=== PATIENT | female | born 1990 | race Caucasian/White ===

== ENCOUNTER 2018-08-21 23:25 | Inpatient (IN) | payer MEDICAID ==
[~2018-08-21] VITALS: Ht 162.6 cm; Wt 57.8 kg
[~2018-08-21 23:25] MED LIST: PRENAT PO
[2018-08-21] MEDS ORDERED: ONDANSETRON 4 MG INJ IV STA (23:53)
[2018-08-21] MEDS ORDERED: SOD CHLORIDE 0.9% 1,000 ML IV STA (23:53)
[2018-08-22] VITALS (9 sets, daily range): BP systolic 74–96; BP diastolic 47–59; PULSE 57–96; RESP 17–18; Ht 162.6 cm; Wt 57.8 kg
[2018-08-22] MEDS ORDERED: DEXTROSE 5%-0.45% NACL 500 ML BAG IV ONE
--- NOTE | 2018-08-22 00:49 | ERD ---
ER Documentation Chief Complaint Chief Complaint NAUSEA WITH VOMITING. 8WKS , VERY WEAK, FAINTED HPI Is a very pleasant 28-year-old female who is a at approximately 8 weeks gestation who presents with hyperemesis and lightheadedness and weakness. The patient describes hyperemesis gravidarum during her first . Over the last several days she has had multiple episodes of nausea and vomiting not alleviated with home Zofran. The patient states that earlier she became lightheaded and had an episode of near syncope or syncope. She denies any abdominal pain or vaginal bleeding. She has had ultrasound during this that confirms IUP. Decreased urine output today. ROS All systems reviewed and are negative except as per history of present illness. Medications Home Meds Reported Medications Multivit/Min/Fol Ac/Iron/Pren* ( S*) 1 Tab Tab, 1 TAB PO DAILY, #1 TAB 02/16/14 Allergies Allergies: Coded Allergies: No Known Allergy (Unverified , 09/10/12) PMhx/Soc Medical and Surgical Hx: pt denies Medical Hx, pt denies Surgical Hx History of Surgery: No Anesthesia Reaction: No Hx Neurological Disorder: No Hx Respiratory Disorders: No Hx Cardiac Disorders: No Hx Psychiatric Problems: No Hx Miscellaneous Medical Probl: Yes (8 weeks gestation ) Hx Alcohol Use: No Hx Substance Use: No Hx Tobacco Use: No Smoking Status: Never smoker FmHx Family History: No diabetes Physical Exam Vitals Vital Signs Date Temp Pulse Resp B/P (MAP) Pulse Ox O2 O2 Flow FiO2 Time Delivery Rate 08/22/18 98.4 71 11 88/54 (65) 100 Room Air 02:00 08/21/18 98.3 60 14 94/64 (74) 100 Room Air 23:46 08/21/18 99.0 73 17 95/50 (65) 98 23:29 Physical Exam General: Well developed, well nourished, no acute distress Head: Normocephalic, atraumatic. Eyes: Pupils equally reactive, EOM intact ENT: Dry mucous membranes Neck: Supple, no lymphadenopathy Respiratory: Lungs clear bilaterally, no distress Cardiovascular: RRR, no murmurs, rubs, or gallops Abdominal: Soft, non-tender, non-distended, no peritoneal signs : Deferred MSK: No edema, no unilateral swelling, 5/5 strength Neurologic: Alert and oriented, moving all extremities, normal speech, no focal weakness, no cerebellar signs Skin: No rash Psych: Normal mood Result Diagram: 08/22/18 0011 08/22/18 0011 Results 24 hrs Laboratory Tests Test 08/22/18 00:11 08/22/18 01:21 08/22/18 01:22 White Blood Count 9.3 10^3/ul Red Blood Count 4.70 10^6/ul Hemoglobin 9.6 g/dl Hematocrit 32.3 % Mean Corpuscular Volume 68.7 fl Mean Corpuscular Hemoglobin 20.4 pg Mean Corpuscular 29.7 g/dl Hemoglobin Concent Red Cell Distribution Width 20.0 % Platelet Count 339 10^3/UL Mean Platelet Volume 9.9 fl Immature Granulocytes % 0.400 % Neutrophils % 71.0 % Lymphocytes % 19.3 % Monocytes % 7.7 % Eosinophils % 1.3 % Basophils % 0.3 % Nucleated Red Blood Cells % 0.0 /100WBC Immature Granulocytes # 0.040 10^3/ul Neutrophils # 6.6 10^3/ul Lymphocytes # 1.8 10^3/ul Monocytes # 0.7 10^3/ul Eosinophils # 0.1 10^3/ul Basophils # 0.0 10^3/ul Nucleated Red Blood Cells # 0.0 10^3/ul Sodium Level 136 mmol/L Potassium Level 3.6 mmol/L Chloride Level 102 mmol/L Carbon Dioxide Level 22 mmol/L Anion Gap 12 Blood Urea Nitrogen 9 mg/dl Creatinine 0.63 mg/dl Est Glomerular Filtrat > 60 mL/min Rate mL/min Glucose Level 96 mg/dl Calcium Level 9.4 mg/dl POC Beta HCG, Qualitative POSITIVE Urine Color YELLOW Urine Clarity SLIGHTLY CLOUDY Urine pH 5.0 Urine Specific [place] 1.013 Urine Ketones TRACE mg/dL Urine Nitrite NEGATIVE mg/dL Urine Bilirubin NEGATIVE mg/dL Urine Urobilinogen NEGATIVE mg/dL Urine Leukocyte Esterase 2+ Emani/ul Urine Microscopic RBC 4 /HPF Urine Microscopic WBC 5 /HPF Urine Squamous Epithelial Cells FEW /HPF Urine Mucus MANY /HPF Urine Hemoglobin NEGATIVE mg/dL Urine Glucose 3+ mg/dL Urine Total Protein NEGATIVE mg/dl Current Medications Medications Dose Sig/Gracie Start Time Status Last (Trade) Ordered Route PRN Stop Time Admin Dose Reason Admin Sodium 1,000 ml @ Q1H STAT 08/21/18 DC 08/22/18 Chloride 1,000 mls/hr IV 23:53 00:09 08/22/18 00:52 Ondansetron 4 mg ONCE STAT 08/21/18 DC 08/22/18 HCl (Zofran IV 23:53 00:21 Inj) 08/21/18 23:59 500 ml ONCE ONCE 08/22/18 DC 08/22/18 Dextrose/Sodi IV 00:00 00:21 um Chloride 08/22/18 00:01 (D5-1/2ns) Sodium 1,000 ml @ Q1H STAT 08/22/18 08/22/18 Chloride 1,000 mls/hr IV 02:08 02:19 08/22/18 03:07 25 mg ONCE ONCE 08/22/18 DC 08/22/18 Diphenhydrami IV 02:30 02:19 ne HCl 08/22/18 02:31 (Benadryl) Ondansetron 4 mg BRIDGE ORDER 08/22/18 HCl (Zofran PRN IV 02:30 Inj) NAUSEA AND/OR 08/23/18 02:29 VOMITING 650 mg ER BRIDGE 08/22/18 Acetaminophen PRN PO MILD 02:30 (Tylenol PAIN(1-3)OR 08/23/18 02:29 Tab) ELEVATED TEMP Procedures/MDM EKG, MONITORS, & DIAGNOSTIC IMAGING: EKG: I reviewed and interpreted a 12-lead EKG. Rhythm: Normal sinus rhythm ST Changes: No contiguous ST segment elevations T waves: No contiguous T wave inversions Impression: [No evidence of acute cardiac ischemia] Pelvic US: Pending LAB INTERPRETATION: * Mild anemia to be expected at . Patient is taking iron supplements. * Ketonuria MEDICAL DECISION MAKING: The patient has hyperemesis gravidarum with associated dehydration and syncopal episode. The patient has no abdominal pain, no vaginal bleeding and confirmed IUP at this . No risk factors for heterotopic . I do not believe this is consistent with ectopic . Ultrasound not indicated currently. Laboratory testing, fluid resuscitation would be most appropriate. No signs or symptoms concerning for pulmonary embolism, blood loss or cardiac etiology as the patient's source of syncope. ER COURSE: * The patient was given IV fluids, dextrose solution, Zofran. She still has persistent symptoms. * A second liter of normal saline was provided, Benadryl provided. * The patient's blood pressure remains in the 80s and 90s. She is a tall slender female and states that her blood pressure is usually in the 90s and 100s. This is not far off from her baseline. However, given the persistence of her symptoms with the evidence of syncope and borderline blood pressure I do believe inpatient hospitalization for treatment of hypovolemia related to hyperemesis gravidarum would be most appropriate. Again, the patient co nfirmed IUP and is a reliable historian. This is not consistent with ectopic . * I discussed the case with Dr. Brown, on-call for [employer]. She agrees with the plan of care and would like the patient needed to medicine and she will follow. She recommends formal ultrasound, hCG, TSH, LFTs and amylase. These have been ordered. CONSULTATION: [employer]PER[employer], Dr. Varela as above DISPOSITION PLAN: Admit for further hydration and management. Accepting care team and consultations: I discussed the current laboratory data, diagnostic imaging and emergency care provided. Admitting team: Dr. Wong Admitting team indication: Insurance directed Departure Diagnosis: Primary Impression: Dehydration Additional Impressions: Hyperemesis gravidarum Syncope Syncope type: unspecified Qualified Codes: R55 - Syncope and collapse Condition: Stable JEFF MIGUEL MD Aug 22, 2018 00:49
[2018-08-22] MEDS ORDERED: SOD CHLORIDE 0.9% 1,000 ML IV STA (02:08)
[2018-08-22] MEDS ORDERED: DIPHENHYDRAMINE 50 MG INJ IV ONE (02:30)
[2018-08-22] MEDS ORDERED: ACETAMINOPHEN 325 MG TAB PO PRN ×2 (02:30→03:00)
--- NOTE | 2018-08-22 02:54 | HP ---
Date/Time of Note Date/Time of Note DATE: 08/22/18 TIME: 02:53 Assessment/Plan VTE Prophylaxis SCD applied (from Nsg): Yes Pharmacological prophylaxis: heparin Pharm contraindication: low risk/ambulating Lines/Catheters IV Catheter Type (from Nrsg): Peripheral IV Assessment/Plan Hospital Course This is a 28-year-old female being admitted to the telemetry floor for: #1 volume depletion and dehydration: Secondary to hyperemesis gravidarum. Patient did present hypotensive but has subsequently responded to fluid boluses. At the current time we will continue to hydrate the patient with normal saline. Zofran and Reglan for nausea. Vitamin B6 X 4 times daily. #2 urinary tract infection: Ceftriaxone 1 g IV every 24 hours, await urine culture results #3 IUP: Ultrasound shows IUP at approximately 9 weeks., Further management as per OB. First trimester labs have been ordered by OB, await results #4 DVT GI prophylaxis: Heparin, no GI prophylaxis indicated Further treatment strategy will be implemented as per the clinical course. Result Diagram: 08/22/18 0011 08/22/18 0011 Results 24hrs Laboratory Tests Test 08/22/18 00:11 08/22/18 01:21 08/22/18 01:22 White Blood Count 9.3 Red Blood Count 4.70 Hemoglobin 9.6 L Hematocrit 32.3 L Mean Corpuscular Volume 68.7 L Mean Corpuscular Hemoglobin 20.4 L Mean Corpuscular 29.7 L Hemoglobin Concent Red Cell Distribution Width 20.0 H Platelet Count 339 Mean Platelet Volume 9.9 Immature Granulocytes % 0.400 Neutrophils % 71.0 Lymphocytes % 19.3 Monocytes % 7.7 Eosinophils % 1.3 Basophils % 0.3 Nucleated Red Blood Cells % 0.0 Immature Granulocytes # 0.040 H Neutrophils # 6.6 Lymphocytes # 1.8 Monocytes # 0.7 Eosinophils # 0.1 Basophils # 0.0 Nucleated Red Blood Cells # 0.0 Sodium Level 136 Potassium Level 3.6 Chloride Level 102 Carbon Dioxide Level 22 Anion Gap 12 Blood Urea Nitrogen 9 Creatinine 0.63 Est Glomerular Filtrat > 60 Rate mL/min Glucose Level 96 Calcium Level 9.4 POC Beta HCG, Qualitative POSITIVE H Urine Color YELLOW Urine Clarity SLIGHTLY CLOUDY A Urine pH 5.0 Urine Specific [place] 1.013 Urine Ketones TRACE A Urine Nitrite NEGATIVE Urine Bilirubin NEGATIVE Urine Urobilinogen NEGATIVE Urine Leukocyte Esterase 2+ H Urine Microscopic RBC 4 Urine Microscopic WBC 5 Urine Squamous FEW Epithelial Cells Urine Mucus MANY A Urine Hemoglobin NEGATIVE Urine Glucose 3+ H Urine Total Protein NEGATIVE HPI/ROS Admit Date/Time Admit Date/Time Hx of Present Illness Chief complaint: Persistent nausea and vomiting, 8 weeks , This is a 28-year-old female who is a at approximately 8 weeks gestation who presents with hyperemesis and lightheadedness and weakness. She reports that ever since she found out she was she has been continuously nauseated and then over the last several days she has had multiple episodes of nausea and vomiting not alleviated with home Zofran. The patient states that earlier she became lightheaded and had an episode of near syncope where her family caught her. She denies any abdominal pain or vaginal bleeding. She has had ultrasound during this that confirms IUP. Decreased urine output today. She reports that during her first she dealt with similar symptoms which were not relieved by any antinausea medications. Allergies: NKDA Medications: Prenatals Iron Folic acid ROS Const: As per HPI Eyes : No pain discharge or redness or change in visual acuity ENT: No pain, sore throat, congestion, congestion, dysphagia or discharge Respiratory: No shortness of breath, cough, sputum, wheezing, or pleuritic pain Cardiovascular: No chest pain, palpitation, PND, or edema GI : As per HPI Genitourinary: No dysuria, hematuria, flank pain , discharge or CVA tenderness Musculoskeletal: No joint pain, back pain, neck pain, restricted range of motion in neck or joints Skin: No rash, bruising or hives Neuro: As per HPI Endocrine: No polyuria, polydipsia, temperature intolerance Psych: No hallucination, depression, anxiety or suicidal ideation PMH/Family/Social Past Medical History History of gestational diabetes during previous Medications Current Medications Sodium Chloride 1,000 ml @ 1,000 mls/hr Q1H STAT IV Last administered on 08/22/18at 02:19; Admin Dose 1,000 MLS/HR; Start 08/22/18 at 02:08; Stop 08/22/18 at 03:07 Ondansetron HCl (Zofran Inj) 4 mg BRIDGE ORDER PRN IV NAUSEA AND/OR VOMITING; Start 08/22/18 at 02:30; Stop 08/23/18 at 02:29 Acetaminophen (Tylenol Tab) 650 mg ER BRIDGE PRN PO MILD PAIN(1-3)OR ELEVATED TEMP; Start 08/22/18 at 02:30; Stop 08/23/18 at 02:29 Ceftriaxone Sodium 50 ml @ 100 mls/hr Q24H IVPB ; Start 08/22/18 at 03:00; Status UNV Sodium Chloride 1,000 ml @ 100 mls/hr Q10H IV ; Start 08/22/18 at 02:46; Status UNV IV Flush (NS 3 ml) 3 ml PER PROTOCOL IV ; Start 08/22/18 at 03:00; Status UNV Ondansetron HCl (Zofran Inj) 4 mg Q6H PRN IV NAUSEA AND/OR VOMITING; Start 08/22/18 at 03:00; Status UNV Acetaminophen (Tylenol Tab) 650 mg Q6H PRN PO PAIN LEVEL 1-3 OR FEVER; Start 08/22/18 at 03:00; Status UNV Docusate Sodium (Colace) 100 mg Q12H PRN PO CONSTIPATION; Start 08/22/18 at 03:00; Status UNV Bisacodyl (Dulcolax) 5 mg DAILY PRN PO CONSTIPATION; Start 08/22/18 at 03:00; Status UNV Pantoprazole (Protonix Iv) 40 mg DAILY@06 IV ; Start 08/22/18 at 06:00; Status UNV Heparin Sodium (Porcine) (Heparin (5000 Units/1ml)) 5,000 unit Q8 SC ; Start 08/22/18 at 06:00; Status UNV Coded Allergies: No Known Allergy (Unverified , 09/10/12) Past Surgical History Past Surgical Hx: no surgical history Family History Significant Family History: no pertinent family hx Social History Alcohol Use: none Smoking Status: Never smoker Drug Use: none Exam/Review of Systems Vital Signs Vitals Vital Signs Date Temp Pulse Resp B/P (MAP) Pulse Ox O2 O2 Flow FiO2 Time Delivery Rate 08/22/18 98.6 61 16 93/80 (84) 100 Room Air 02:47 Intake and Output 08/21/18 08/21/18 08/22/18 1515:00 23:00 07:00 IntakeIntake Total 1000 ml BalanceBalance 1000 ml Exam Exam General: Patient is currently lying in bed, she appears weak HEENT: Atraumatic, normocephalic. The pupils are equal, round and reactive. Extraocular motor are intact, mucous membranes dry Neck: Supple with full range of motion. No rigidity or meningismus Chest: Nontender Lungs: Clear to auscultation bilaterally no crackles rales or wheezing Heart: Normal S1-S2, Regular rhythm and rate. Abdomen: Soft , nontender, nondistended , bowel sounds are present. No guarding no rebound tenderness , No masses or organomegaly. No costovertebral temporal angle mass Extremities: Normal to inspection, no edema no cyanosis Neurologic: Normal mental status, speech normal, cranial nerves II through XII are intact, motor and sensory are intact, Additional Comments PROCEDURE: US OB. CLINICAL INDICATION: Vaginal Bleed () vomiting. LMP 06/14/2018. TECHNIQUE: Transabdominal and transvaginal views of the pelvis are available for review. COMPARISON: No prior studies are available for comparison. FINDINGS: There is an intrauterine gestational sac. The mean sac diameter is 3.91 cm. pole and yolk sac are seen. There is evidence of a subchorionic hematoma measuring 1.8 x 0.8 cm. Leonidas-rump length: 2.15 cm heart rate: 176 beats per minute Nuchal translucency: Ultrasound estimated gestational age: 9 weeks, 1 day. The gestational age by LMP is 9 weeks, 6 days. The BHARATI is 03/26/2019. BHARATI by LMP is 03/21/2018. The right ovary measures 3.2 x 1.8 x 2.4 cm. The left ovary measures 3.2 x 1.3 x 1.7 cm. There is a 3 x 4 mm echogenic lesion without shadowing in the left ovar y, likely benign. Doppler flow is demonstrated in both ovaries. No adnexal mass is identified. There is no free fluid. IMPRESSION: 1. Single live intrauterine with an estimated gestational age of 9 weeks, 1 day. BHARATI is 03/26/2019. 1.8 x 0.8 cm subchorionic hematoma. [facility] Darnell Fernandez Physician Date Time Electronically viewed and signed by Darnell Fernandez, Physician on 08/22/2018 04:36 CS/ CC: JEFF MIGUEL MD [id number] GANESH SALGUERO Aug 22, 2018 02:54
[2018-08-22] MEDS ORDERED: CEFTRIAXONE 1 GM/50 ML (PMX) 50 ML IVPB SCH (03:00)
[2018-08-22] MEDS ORDERED: BISACODYL (EC) 5 MG TAB PO PRN (03:00)
[2018-08-22] MEDS ORDERED: DOCUSATE SODIUM 100 MG CAP PO PRN (03:00)
[2018-08-22] MEDS ORDERED: NACL 0.9% 3 ML SYG IV SCH (03:00)
[2018-08-22] MEDS ORDERED: ONDANSETRON 4 MG INJ IV PRN (03:00)
[2018-08-22] MEDS: METOCLOPRAMIDE 10 MG INJ IV SCH ×3 (05:44→17:19)
[2018-08-22] MEDS: PYRIDOXINE 50 MG TAB PO SCH ×4 (05:44→20:54)
[2018-08-22] MEDS: PANTOPRAZOLE 40 MG INJ IV SCH (05:44)
[2018-08-22] MEDS: CEFTRIAXONE 1 GM/50 ML (PMX) 50 ML IVPB SCH (05:44)
[2018-08-22] MEDS: SOD CHLORIDE 0.9% 1,000 ML IV SCH ×3 (05:56→15:35)
[2018-08-22] MEDS: HEPARIN 5,000 UNIT/1 ML VIAL SC SCH ×3 (06:01→21:09)
[2018-08-22] MEDS: ONDANSETRON 4 MG INJ IV PRN ×2 (09:58→15:35)
--- NOTE | 2018-08-22 17:07 | PN ---
Date/Time of Note Date/Time of Note DATE: 08/22/18 TIME: 17:04 Assessment/Plan VTE Prophylaxis Risk score (from Ns)>0 risk: 0 SCD applied (from Ns): Yes Pharmacological prophylaxis: NA/contraindicated Pharm contraindication: low risk/ambulating Lines/Catheters IV [facility]from [facility] [place] Assessment/Plan Assessment/Plan 28 yo woman admitted for hyperemesis gravidum. She's 9 weeks . #Hyperemesis gravidum # volume depletion and dehydration - Secondary to hyperemesis gravidarum. - Remains borderline hypotensive - Continue IV fluids until reliably taking PO. - Symptomatic zofran and Reglan - Vitamin B6 X 4 times daily. #Iron deficiency anemia - Ferrlicit IV # urinary tract infection: Ceftriaxone 1 g IV every 24 hours, await urine cultu re results # IUP: Ultrasound shows IUP at approximately 9 weeks., Further management as per OB. First trimester labs have been ordered by OB, await results # DVT GI prophylaxis: Heparin, no GI prophylaxis indicated Result Diagram: 08/22/18 0011 08/22/18 0011 Results 24hrs Laboratory Tests Test 08/22/18 00:11 08/22/18 01:21 08/22/18 01:22 White Blood Count 9.3 Red Blood Count 4.70 Hemoglobin 9.6 L Hematocrit 32.3 L Mean Corpuscular Volume 68.7 L Mean Corpuscular Hemoglobin 20.4 L Mean Corpuscular 29.7 L Hemoglobin Concent Red Cell Distribution Width 20.0 H Platelet Count 339 Mean Platelet Volume 9.9 Immature Granulocytes % 0.400 Neutrophils % 71.0 Lymphocytes % 19.3 Monocytes % 7.7 Eosinophils % 1.3 Basophils % 0.3 Nucleated Red Blood Cells % 0.0 Immature Granulocytes # 0.040 H Neutrophils # 6.6 Lymphocytes # 1.8 Monocytes # 0.7 Eosinophils # 0.1 Basophils # 0.0 Nucleated Red Blood Cells # 0.0 Sodium Level 136 Potassium Level 3.6 Chloride Level 102 Carbon Dioxide Level 22 Anion Gap 12 Blood Urea Nitrogen 9 Creatinine 0.63 Est Glomerular Filtrat > 60 Rate mL/min Glucose Level 96 Calcium Level 9.4 Iron Level 26 L Total Iron Binding Capacity 419 Percent Iron Saturation 6 L Ferritin 5.4 L Total Bilirubin 0.2 Direct Bilirubin 0.00 Indirect Bilirubin 0.2 Aspartate Amino 19 Transf (AST/SGOT) Alanine 27 Aminotransferase (ALT/SGPT) Alkaline Phosphatase 45 Total Protein 6.9 Albumin 3.6 Amylase Level 124 H Thyroid Stimulating 0.279 L Hormone (TSH) Free Thyroxine 1.77 Beta HCG, Quantitative 798242.0 POC Beta HCG, Qualitative POSITIVE H Urine Color YELLOW Urine Clarity SLIGHTLY CLOUDY A Urine pH 5.0 Urine Specific [place] 1.013 Urine Ketones TRACE A Urine Nitrite NEGATIVE Urine Bilirubin NEGATIVE Urine Urobilinogen NEGATIVE Urine Leukocyte Esterase 2+ H Urine Microscopic RBC 4 Urine Microscopic WBC 5 Urine Squamous FEW Epithelial Cells Urine Mucus MANY A Urine Hemoglobin NEGATIVE Urine Glucose 3+ H Urine Total Protein NEGATIVE Subjective 24 Hr Interval Summary Free Text/Dictation No acute overnight events. Patient is still very nauseated, but no vomiting since last night. Exam/Review of Systems Vital Signs Vitals Vital Signs Date Temp Pulse Resp B/P (MAP) Pulse Ox O2 O2 Flow FiO2 Time Delivery Rate 08/22/18 57 16:17 08/22/18 98.7 17 82/50 (61) 98 15:38 08/22/18 Room Air 05:21 Intake and Output 08/21/18 08/21/18 08/22/18 1515:00 23:00 07:00 IntakeIntake Total 1240 ml BalanceBalance 1240 ml Exam General: Patient is currently lying in bed, she appears weak HEENT: Atraumatic, normocephalic. The pupils are equal, round and reactive. Extraocular motor are intact, mucous membranes dry Neck: Supple with full range of motion. No rigidity or meningismus Chest: Nontender Lungs: Clear to auscultation bilaterally no crackles rales or wheezing Heart: Normal S1-S2, Regular rhythm and rate. Abdomen: Soft , nontender, nondistended , bowel sounds are present. No guarding , No masses or organomegaly. No costovertebral temporal angle mass Extremities: Normal to inspection, no edema no cyanosis Medications Medications Current Medications Ondansetron HCl (Zofran Inj) 4 mg BRIDGE ORDER PRN IV NAUSEA AND/OR VOMITING Last administered on 08/22/18at 15:35; Admin Dose 4 MG; Start 08/22/18 at 02:30; Stop 08/23/18 at 02:29 Acetaminophen (Tylenol Tab) 650 mg ER BRIDGE PRN PO MILD PAIN(1-3)OR ELEVATED TEMP; Start 08/22/18 at 02:30; Stop 08/23/18 at 02:29 Sodium Chloride 1,000 ml @ 100 mls/hr Q10H IV Last administered on 08/22/18at 15:35; Admin Dose 100 MLS/HR; Start 08/22/18 at 02:46 IV Flush (NS 3 ml) 3 ml PER PROTOCOL IV ; Start 08/22/18 at 03:00 Ondansetron HCl (Zofran Inj) 4 mg Q6H PRN IV NAUSEA AND/OR VOMITING; Start 08/22/18 at 03:00 Acetaminophen (Tylenol Tab) 650 mg Q6H PRN PO PAIN LEVEL 1-3 OR FEVER; Start 08/22/18 at 03:00 Docusate Sodium (Colace) 100 mg Q12H PRN PO CONSTIPATION; Start 08/22/18 at 03:00 Bisacodyl (Dulcolax) 5 mg DAILY PRN PO CONSTIPATION; Start 08/22/18 at 03:00 Pantoprazole (Protonix Iv) 40 mg DAILY@06 IV Last administered on 08/22/18at 05:44; Admin Dose 40 MG; Start 08/22/18 at 06:00 Heparin Sodium (Porcine) (Heparin (5000 Units/1ml)) 5,000 unit Q8 SC Last administered on 08/22/18at 06:01; Admin Dose 5,000 UNIT; Start 08/22/18 at 06:00 Ceftriaxone Sodium 50 ml @ 100 mls/hr Q24H IVPB Last administered on 08/22/18 05:44; Admin Dose 100 MLS/HR; Start 08/22/18 at 04:00 Pyridoxine HCl (Vitamin B6) 25 mg QID PO Last administered on 08/22/18at 12:30; Admin Dose 25 MG; Start 08/22/18 at 05:00 Metoclopramide HCl (Reglan) 10 mg Q6 IV Last administered on 08/22/18 12:30; Admin Dose 10 MG; Start 08/22/18 at 06:00 MARLO CASTANEDA MD Aug 22, 2018 17:06
[2018-08-22] MEDS ORDERED: DIPHENHYDRAMINE 25 MG CAP PO ONE (20:30)
[2018-08-23] VITALS (9 sets, daily range): BP systolic 91–107; BP diastolic 51–63; PULSE 61–82; RESP 17–18
[2018-08-23] MEDS: METOCLOPRAMIDE 10 MG INJ IV SCH ×5 (00:08→17:32)
[2018-08-23] MEDS: CEFTRIAXONE 1 GM/50 ML (PMX) 50 ML IVPB SCH (04:56)
[2018-08-23] MEDS: PANTOPRAZOLE 40 MG INJ IV SCH (06:40)
[2018-08-23] MEDS: HEPARIN 5,000 UNIT/1 ML VIAL SC SCH ×3 (06:51→21:52)
[2018-08-23] MEDS: SOD CHLORIDE 0.9% 1,000 ML IV SCH ×3 (08:46→17:48)
[2018-08-23] MEDS: PYRIDOXINE 50 MG TAB PO SCH ×4 (09:29→21:34)
--- NOTE | 2018-08-23 10:40 | PN ---
Date/Time of Note Date/Time of Note DATE: 08/23/18 TIME: 10:36 Assessment/Plan VTE Prophylaxis Risk score (from Ns)>0 risk: 1 SCD applied (from Ns): No SCD contraindicated: other Pharmacological prophylaxis: other Lines/Catheters IV Catheter Type (from [facility] Saline Lock Assessment/Plan Hospital Course S: Patient able to tolerate some p.o. diet, slightly less nausea vomiting sympto ms. O: VS - see below PE: General: lying in bed, family at the bedside, slightly less lethargic HEENT: pupils are equal, round and reactive. Extraocular motor are intact Neck: Supple Chest: Nontender Lungs: Clear to auscultation bilaterally no crackles rales or wheezing Heart: Normal S1-S2, Regular rhythm and rate. Abdomen: Soft , nontender, nondistended , bowel sounds are present. No guarding or rebound Extremities: Normal to inspection, no edema no cyanosis Assessment/Plan: 28 yo woman admitted for hyperemesis gravidum, with active 9 weeks . #Hyperemesis gravidum-slightly improving, patient also found with volume depletion and dehydration- Secondary to hyperemesis gravidarum. - Continue IV fluids until reliably taking PO. -For now continue symptomatic zofran and Reglan - Vitamin B6 X 4 times daily. #Iron deficiency anemia -Ordered for Ferrlicit IV # urinary tract infection: Urine culture shows positive Myla and gram- negative rods -For now continue ceftriaxone 1 g IV every 24 hours, await urine culture results # IUP: Ultrasound shows IUP at approximately 9 weeks. -Monitor, continue further management as per OB. First trimester labs have been ordered by OB, await results # DVT GI prophylaxis: Heparin, no GI prophylaxis indicated Dispo: Likely home in 24 hours of her nausea vomiting symptoms improved, final urine culture are back, and hemoglobin is stable Result Diagram: 08/23/18 0517 08/23/18 0517 Results 24hrs Laboratory Tests Test 08/23/18 05:17 White Blood Count 8.7 Red Blood Count 3.67 #L Hemoglobin 7.6 #L Hematocrit 25.4 #L Mean Corpuscular Volume 69.2 L Mean Corpuscular Hemoglobin 20.7 L Mean Corpuscular Hemoglobin Concent 29.9 L Red Cell Distribution Width 20.4 H Platelet Count 265 # Mean Platelet Volume 10.7 H Immature Granulocytes % 0.300 Neutrophils % 63.2 Lymphocytes % 26.6 Monocytes % 7.7 Eosinophils % 1.7 Basophils % 0.5 Nucleated Red Blood Cells % 0.0 Immature Granulocytes # 0.030 Neutrophils # 5.5 Lymphocytes # 2.3 Monocytes # 0.7 Eosinophils # 0.2 Basophils # 0.0 Nucleated Red Blood Cells # 0.0 Sodium Level 137 Potassium Level 3.6 Chloride Level 109 Carbon Dioxide Level 21 Anion Gap 7 Blood Urea Nitrogen 4 L Creatinine 0.61 Est Glomerular Filtrat Rate mL/min > 60 Glucose Level 82 Hemoglobin A1c 5.3 Calcium Level 8.5 Magnesium Level 1.6 L Total Bilirubin 0.1 L Direct Bilirubin 0.00 Indirect Bilirubin 0.1 Aspartate Amino Transf (AST/SGOT) 17 Alanine Aminotransferase (ALT/SGPT) 24 Alkaline Phosphatase 39 L Total Protein 5.8 #L Albumin 2.9 L Globulin 2.90 Albumin/Globulin Ratio 1.00 Exam/Review of Systems Vital Signs Vitals Vital Signs Date Temp Pulse Resp B/P (MAP) Pulse Ox O2 O2 Flow FiO2 Time Delivery Rate 08/23/18 62 09:15 08/23/18 98.6 18 107/63 98 07:49 (78) 08/22/18 Room Air 05:21 Intake and Output 08/22/18 08/22/18 08/23/18 1515:00 23:00 07:00 IntakeIntake Total 1920 ml 650 ml BalanceBalance 1920 ml 650 ml Medications Medications Current Medications Sodium Chloride 1,000 ml @ 100 mls/hr Q10H IV Last administered on 08/22/18at 15:35; Admin Dose 100 MLS/HR; Start 08/22/18 at 02:46 IV Flush (NS 3 ml) 3 ml PER PROTOCOL IV ; Start 08/22/18 at 03:00 Ondansetron HCl (Zofran Inj) 4 mg Q6H PRN IV NAUSEA AND/OR VOMITING; Start 08/22/18 at 03:00 Acetaminophen (Tylenol Tab) 650 mg Q6H PRN PO PAIN LEVEL 1-3 OR FEVER; Start 08/22/18 at 03:00 Docusate Sodium (Colace) 100 mg Q12H PRN PO CONSTIPATION; Start 08/22/18 at 03: 00 Bisacodyl (Dulcolax) 5 mg DAILY PRN PO CONSTIPATION; Start 08/22/18 at 03:00 Pantoprazole (Protonix Iv) 40 mg DAILY@06 IV Last administered on 08/23/18at 06:40; Admin Dose 40 MG; Start 08/22/18 at 06:00 Heparin Sodium (Porcine) (Heparin (5000 Units/1ml)) 5,000 unit Q8 SC Last administered on 08/23/18at 06:51; Admin Dose 5,000 UNIT; Start 08/22/18 at 06:00 Ceftriaxone Sodium 50 ml @ 100 mls/hr Q24H IVPB Last administered on 08/23/18at 04:56; Admin Dose 100 MLS/HR; Start 08/22/18 at 04:00 Pyridoxine HCl (Vitamin B6) 25 mg QID PO Last administered on 08/23/18at 09:29; Admin Dose 25 MG; Start 08/22/18 at 05:00 Ferric Sodium Gluconate Complex 125 mg/Sodium Chloride 100 ml @ 100 mls/hr LUIS Y@1300 IVPB ; Start 08/23/18 at 13:00; Stop 08/25/18 at 13:59 Magnesium Sulfate/ Dextrose 100 ml @ 100 mls/hr ONCE ONCE IVPB ; Start 08/23/18 at 11:30; Stop 08/23/18 at 12:29 Metoclopramide HCl (Reglan) 10 mg Q6 IV ; Start 08/23/18 at 11:00 REBECA BAJWA Aug 23, 2018 10:40
[2018-08-23] MEDS ORDERED: METOCLOPRAMIDE 10 MG INJ IV PRN (11:00)
[2018-08-23] MEDS ORDERED: MAGNESIUM SULFATE 1 GM/D5W 100 ML IVPB ONE (11:30)
[2018-08-23] MEDS: SOD FERRIC GLUC COMPLX 125 MG in SOD CHLORIDE 0.9% 100 ML IVPB SCH (14:51)
[2018-08-23] MEDS: DIPHENHYDRAMINE 50 MG INJ IV PRN (21:34)
[2018-08-23] MEDS ORDERED: ONDANSETRON INJ 8 MG in SOD CHLORIDE 0.9% 50 ML IV PRN (23:00)
[2018-08-23] MEDS ORDERED: TRIMETHOBENZAMIDE 100 MG/ML VIAL IM PRN (23:00)
[2018-08-24] VITALS: BP 100/55; PULSE 67; RESP 18
[2018-08-24] MEDS: METOCLOPRAMIDE 10 MG INJ IV SCH ×3 (00:09→11:41)
[2018-08-24] MEDS ORDERED: ONDANSETRON 4 MG INJ IV PRN (03:00)
[2018-08-24 04:00] VITALS: BP 96/54; PULSE 55; RESP 18
[2018-08-24] MEDS: CEFTRIAXONE 1 GM/50 ML (PMX) 50 ML IVPB SCH (04:55)
[2018-08-24] MEDS: SOD CHLORIDE 0.9% 1,000 ML IV SCH ×2 (04:55→10:10)
[2018-08-24] MEDS ORDERED: PANTOPRAZOLE (EC) 40 MG TAB PO SCH (06:00)
[2018-08-24] MEDS: DIPHENHYDRAMINE 50 MG INJ IV PRN (06:37)
[2018-08-24] MEDS: HEPARIN 5,000 UNIT/1 ML VIAL SC SCH (06:46)
[2018-08-24 07:31] VITALS: BP 104/59; PULSE 68; RESP 17
[2018-08-24] MEDS: PYRIDOXINE 50 MG TAB PO SCH (08:14)
[2018-08-24 09:06] VITALS: PULSE 61
--- NOTE | 2018-08-24 10:44 | PDOCDIS ---
Discharge Instructions CONDITION [id number] Patient Condition: [id number] Stable HOME CARE INSTRUCTIONS: [id number] Diet Instructions: [id number] Modified Fat ACTIVITY: [id number] Activity Restrictions: [id number] Slowly Increase Activity Rest between Activity Avoid heavy lifting FOLLOW UP/APPOINTMENTS Follow-up Plan Please take your medications as prescribed. Please see your doctor in the clinic in the next 1 week. REBECA BAJWA. Aug 24, 2018 10:44
[2018-08-24] MEDS ORDERED: TRIM100V2 IM (10:46)
[2018-08-24] MEDS ORDERED: NITR-58 PO (10:46)
[2018-08-24] MEDS ORDERED: DIPH25CA6 PO (10:46)
[2018-08-24] MEDS ORDERED: ONDA8TAB9 PO (10:46)
--- NOTE | 2018-08-24 10:49 | DS ---
Date/Time of Note Date/Time of Note DATE: 08/24/18 TIME: 10:47 Discharge Summary Admission/Discharge Info Admit Date/Time Aug 24, 2018 at 06:55 Discharge Date/Time Discharge Diagnosis #Hyperemesis gravidum-nausea vomiting improving #Iron deficiency anemia-given IV iron # urinary tract infection: Urine culture shows positive Myla and gram- negative rods -on antibiotics # IUP: Ultrasound shows IUP at approximately 9 weeks-follows up with [facility] as outpatient Patient Condition: Stable Hx of Present Illness 28-year-old female who is a at approximately 8 weeks gestation who presents with hyperemesis and lightheadedness and weakness. She reports that ever since she found out she was she has been continuously nauseated and then over the last several days she has had multiple episodes of nausea and vomiting not alleviated with home Zofran. The patient states that earlier she became lightheaded and had an episode of near syncope where her family caught her. She denies any abdominal pain or vaginal bleeding. She has had ultrasound during this that confirms IUP. Decreased urine output today. She reports that during her first she dealt with similar symptoms which were not relieved by any antinausea medications. Hospital Course So patient was admitted to telemetry floor. She was given antiemetic medication as well. She had some low electrolytes including magnesium which were repleted as well. She was briefly evaluated by [facility] team regarding her intrauterine . This appeared to be stable. Regarding her hyperemesis gravidarum, her symptoms slowly improved with antiemetic medication. She was also given IV fluids. Eventually she was able to ambulate and tolerate diet. Vital signs are stable. Electrolytes appear to be stable after repletion. Because her symptoms have clinically improved, she was able to ambulate, vital signs are stable, she will be discharged home today in improved condition. See below for full list of discharge medications. Home Meds Active Scripts Diphenhydramine Hcl* (Diphenhydramine Hcl*) 25 Mg Capsule, 25 MG PO Q6 PRN for ITCHING, #40 CAP Prov:REBECA BAJWA S. 08/24/18 Trimethobenzamide HCl (Tigan) 100 Mg/1 Ml Vial, 200 MG IM Q6H PRN for NAUSEA AND/OR VOMITING, #1 VIAL Prov:REBECA BAJWA S. 08/24/18 Ondansetron Hcl* (Zofran*) 8 Mg Tablet, 8 MG PO Q6H PRN for NAUSEA AND OR VOMITING, #40 TAB Prov:REBECA BAJWA. 08/24/18 Nitrofurantoin Monohyd Macrocr* (Macrobid*) 100 Mg Capsr, 100 MG PO BID for 5 Days, #10 CAP Prov:REBECA BAJWA S. 08/24/18 Reported Medications Multivit/Min/Fol Ac/Iron/Pren* ( S*) 1 Tab Tab, 1 TAB PO DAILY, #1 TAB 02/16/14 Follow-up Plan Please take your medications as prescribed. Please see your doctor in the clinic in the next 1 week. Primary Care Provider Care Physician No Primary Time spent on discharge: > 30 minutes REBECA BAJWA Aug 24, 2018 10:49
[2018-08-24] MEDS ORDERED: MAGNESIUM SULFATE 1 GM/D5W 100 ML IVPB ONE (11:30)
[2018-08-24 11:37] VITALS: BP 95/55; PULSE 69; RESP 16
[2018-08-24] MEDS: SOD FERRIC GLUC COMPLX 125 MG in SOD CHLORIDE 0.9% 100 ML IVPB SCH (12:42)
[2018-08-24 12:53] VITALS: PULSE 67
== END 2018-08-24 14:00 | disposition home or self-care (01) | DRG 832 ==
LOC: E/R 23:25 → 6WM 08-22 02:29 → OBSVTOIN 08-24 06:55
PROVIDERS: ADMIT Family Medicine; ATTEND Internal Medicine
DX: O21.0 Mild hyperemesis gravidarum (principal); O23.41 Unspecified infection of urinary tract in pregnancy, first trimester; Z3A.09 9 weeks gestation of pregnancy; B96.89 Other specified bacterial agents as the cause of diseases classified elsewhere; O99.011 Anemia complicating pregnancy, first trimester; E86.0 Dehydration
CPT/HCPCS: 36415; 76801; 80048; 80053; 80076; 81001; 81025; 82150; 82728; 83036; 83540; 83735; 84439; 84443; 84702; 85014; 85018; 85025; 87086; 93005; 96361; 96374; 96375; 99217; G0378; C9113; J0696; J1200; J1644; J2405; J2765; J2916; J3250; J3475; J7030

== ENCOUNTER 2018-09-06 17:28 | Emergency (ER) | payer SELFPAY ==
[~2018-09-06] VITALS: Ht 157.5 cm; Wt 55.0 kg
[~2018-09-06 17:28] MED LIST changes: +DIPH25CA6 PO; +NITR-58 PO; +ONDA8TAB9 PO; +TRIM100V2 IM
[2018-09-06 17:35] VITALS: BP 94/60; PULSE 95; RESP 20; Ht 157.5 cm; Wt 55.0 kg
== END 2018-09-06 18:29 | disposition left against medical advice (07) ==
LOC: FTE 17:28
DX: Z53.21 Procedure and treatment not carried out due to patient leaving prior to being seen by health care provider (principal)

== ENCOUNTER 2018-12-30 15:30 | Outpatient (CLI) | payer MEDICAID ==
[~2018-12-30] VITALS: Ht 160 cm; Wt 66.9 kg
[2018-12-30 15:44] VITALS: Ht 160 cm; Wt 66.9 kg
[2018-12-30 15:45] VITALS: BP 96/54; PULSE 83; RESP 16
--- NOTE | 2018-12-30 21:48 | PN ---
Triage Information Date/Time 12/30/18 Reason for visit: Weeks of Gestation 27w /Para , Diabetes: none Hypertention: none Additional information had vaginal spotting denies any uc's but pressure sensation on inguinal region Objective Vital Signs Date Temp Pulse Resp B/P (MAP) Pulse Ox O2 O2 Flow FiO2 Time Delivery Rate 12/30/18 98.5 83 16 96/54 (68) 15:45 Heart Rate: 150's Heart Rate Comments adequate for GA Contractions: None Exam o+ blood type Results/Medications Results 24 hrs Laboratory Tests Test 12/30/18 15:51 Urine Color YELLOW Urine Clarity SLIGHTLY CLOUDY A Urine pH 5.0 Urine Specific [place] 1.023 Urine Ketones TRACE A Urine Nitrite NEGATIVE Urine Bilirubin NEGATIVE Urine Urobilinogen 2+ H Urine Leukocyte Esterase TRACE A Urine Microscopic RBC 1 Urine Microscopic WBC 2 Urine Bacteria FEW A Urine Mucus FEW A Urine Hemoglobin NEGATIVE Urine Glucose NEGATIVE Urine Total Protein NEGATIVE Imaging Results BPP 8/8 NST 12.7 no abruption Disposition: Discharge Assessment/Plan A IUP 27w DFM S/P fall no abdominal contusion P discharge home with rest f/u at her OB RTH prn NANO TAYLOR MD December 30, 2018 21:48
--- NOTE | 2018-12-30 23:27 | TRIAGE ---
OB Triage Datetime Report Generated by CPN: 12/30/2018 23:26 Datetime: 12/30/2018 20:23 Vaginal Exam Membrane Status: Intact Datetime: 12/30/2018 20:12 Stage of : OB Triage Datetime: 12/30/2018 19:15 Time of Arrival: 12/30/2018 15:04 EGA: 27.0 Arrived By: Ambulatory Arrived From: Home Chief Complaint: stated she fell at home and hit left arm and back, had little spot ting yesterday and came to hospital d/t DFM today Movement: Decreased Contractions: Denies/Absent Rupture of Membranes: Denies Vaginal Bleeding: Scant Vaginal Discharge: Present Recent Sexual Intercouse: Denies Abdominal Trauma: Fall Patient Complaints: Other Initial Plan: NST,BPP,UA,BLOOD TYPE Datetime: 12/30/2018 19:14 Stage of : OB Triage Labor Evaluation Monitor Mode: External Pattern: Normal: <= 5 Contractions in 10 Minutes Resting Tone [place]: Relaxed Heart Rate FHR Baseline Rate: 145 Monitor Mode: External US FHR Baseline Changes: No Baseline Change Variability: Moderate 6-25 bpm Accelerations: 15X15 Decelerations: None Category: Category I Pain Assessment Pain Scale: 0 Pain Presence: None/Denies Pain Type: N/A Datetime: 12/30/2018 18:58 Pattern: Normal: <= 5 Contractions in 10 Minutes Resting Tone [place]: Relaxed Contraction Comments: no uc Heart Rate FHR Baseline Rate: 145 Monitor Mode: External US Variability: Moderate 6-25 bpm Accelerations: 15X15 Decelerations: None Category: Category I Datetime: 12/30/2018 18:01 Pattern: Normal: <= 5 Contractions in 10 Minutes Resting Tone [place]: Relaxed Contraction Comments: no uc Heart Rate FHR Baseline Rate: 145 Monitor Mode: External US Variability: Moderate 6-25 bpm Accelerations: 15X15 Decelerations: Variable Category: Category II Datetime: 12/30/2018 17:00 Pattern: Normal: <= 5 Contractions in 10 Minutes Resting Tone [place]: Relaxed Contraction Comments: no uc Heart Rate FHR Baseline Rate: 145 Monitor Mode: External US Variability: Moderate 6-25 bpm Accelerations: 15X15 Decelerations: None Category: Category I Datetime: 12/30/2018 15:42 Assessment Type: Triage Maternal Assessment Level of Consciousness: Fully Conscious DTR's/Clonus: DTRs 2+; No Clonus Headache: Denies Blurred Vision: No Respiratory Effort: Unlabored; Regular Rhythm; Equal Expansion Breath Sounds, Left: Clear and Equal Breath Sounds, Right: Clear and Equal Nausea/Vomiting: Denies RUQ Epigastric Pain: Denies Lower Extremities Edema: None Degree: None Upper Extremities Edema: None Degree: None Facial Edema: None Fall Risk Assessment History of Falling: (0) No Secondary Diagnosis: (0) No Ambulatory Aid: (0) Bedrest/Nurse Assist IV Therapy: (0) No Gait: (0) Normal/Bedrest/Immobile Mental Status: (0) Oriented to Own Ability Fall Score: 0 Fall Risk Score Definition: No Risk: No action required
== END 2018-12-30 20:20 | disposition home or self-care (01) ==
LOC: OBT 15:30 → L-D 15:31 → OBT 20:20
PROVIDERS: ATTEND Obstetrics & Gynecology
DX: O36.8120 Decreased fetal movements, second trimester, not applicable or unspecified (principal); O26.852 Spotting complicating pregnancy, second trimester; Z3A.27 27 weeks gestation of pregnancy
CPT/HCPCS: 76818; 81001; Z7500; G0463

== ENCOUNTER 2019-03-11 17:19 | Outpatient (CLI) | payer MEDICAID ==
[~2019-03-11] VITALS: Ht 160 cm; Wt 75.0 kg
[~2019-03-11 17:19] MED LIST changes: +CALC600T24 PO; -DIPH25CA6 PO; +DOCU-144 PO; +FER325 PO; +IBUP-1542 PO; -NITR-58 PO; -ONDA8TAB9 PO; -TRIM100V2 IM
[2019-03-11 17:38] VITALS: Ht 160 cm; Wt 75.0 kg
[2019-03-11 17:39] VITALS: BP 92/60; PULSE 113; RESP 18
[2019-03-11] MEDS ORDERED: SOD CHLORIDE 0.9% 1,000 ML IV SCH (20:30)
--- NOTE | 2019-03-11 20:54 | PN ---
Triage Information Date/Time Reason for visit: Severe anemia sent from her clinic for possible blood transfusion or iron infusion Weeks of Gestation 28-year-old 2 para 1 at 37 weeks and 1 day gestation with estimated date of delivery March 31, 2019 Patient was sent from her clinic for possible blood transfusion or iron infusion for severe anemia with hemoglobin of 6 Patient reports positive movement, denies vaginal bleeding and leaking fluid, denies uterine contractions Past obstetrical history significant for x1 and she reports receiving blood transfusion /Para 2 para 1 Diabetes: none Hypertention: none Objective Vital Signs Date Temp Pulse Resp B/P (MAP) Pulse Ox O2 O2 Flow FiO2 Time Delivery Rate 03/11/19 98.3 113 18 92/60 (71) Room Air 17:39 Heart Rate: 140's Heart Rate Comments heart rate tracing category 1 Contractions: None Results/Medications Medications Current Medications Ferric Sodium Gluconate Complex 125 mg/Sodium Chloride 100 ml @ 100 mls/hr ONCE ONCE IVPB ; Start 03/11/19 at 21:30; Stop 03/11/19 at 22:29 Sodium Chloride 1,000 ml @ 125 mls/hr Q8H IV Last administered on 03/11/19at 20:42; Admin Dose 125 MLS/HR; Start 03/11/19 at 20:30 Imaging Results PROCEDURE: Ultrasound Biophysical profile with amniotic fluid index CLINICAL INDICATION: Pelvic pressure TECHNIQUE: Color and carter-scale ultrasound images of an intrauterine gestation were obtained. COMPARISON: US PELVIS 12/30/2018 FINDINGS: A single live intrauterine gestation is identified in cephalic position with an estimated heart rate of 132 beats per minute. The placenta is fundal and posterior. There is no evidence of placental abruption. JAMIE is 13.01 cm. movement 2/2. tone 2/2. breathing movement 2/2. Qualitative AFV 2/2 Total biophysical profile 03/17 IMPRESSION: 03/17 biophysical profile. Amniotic fluid index equals 13.01 cm. RPTAT: HJES .Sohan Yoo MD, Date Time Electronically viewed and signed by .Sohan Yoo MD, on 03/11/2019 21:50 .S/ CC: LUCÍA NULL MD [phone] Disposition: Discharge Assessment/Plan Patient was given iron infusion IV x1 dose She was instructed to return daily for the next 3 days for iron infusion We will check her H&H in a couple of days kick count instructions were given Labor precautions were given Patient instructed to return here to triage tomorrow LUCÍA NULL MD Mar 11, 2019 20:54
[2019-03-11] MEDS ORDERED: SOD FERRIC GLUC COMPLX 125 MG in SOD CHLORIDE 0.9% 100 ML IVPB ONE (21:30)
--- NOTE | 2019-03-11 22:58 | TRIAGE ---
OB Triage Datetime Report Generated by CPN: 03/11/2019 22:58 Datetime: 03/11/2019 22:00 Labor Evaluation Frequency: OCC Monitor Mode: External Heart Rate FHR Baseline Rate: 140 Monitor Mode: External US FHR Baseline Changes: No Baseline Change Variability: Moderate 6-25 bpm Accelerations: 15X15 Decelerations: None Category: Category I Datetime: 03/11/2019 21:00 Labor Evaluation Frequency: OCC Monitor Mode: External Duration (sec)2399: 20-80 Quality: Mild Heart Rate FHR Baseline Rate: 140 Monitor Mode: External US FHR Baseline Changes: No Baseline Change Variability: Moderate 6-25 bpm Accelerations: 15X15 Decelerations: None Category: Category I Datetime: 03/11/2019 20:00 Labor Evaluation Frequency: X3 Monitor Mode: External Duration (sec)2399: 60-80 Quality: Mild Heart Rate FHR Baseline Rate: 130 Monitor Mode: External US FHR Baseline Changes: No Baseline Change Variability: Moderate 6-25 bpm Accelerations: 15X15 Decelerations: None Category: Category I Datetime: 03/11/2019 19:52 Maternal Assessment Level of Consciousness: Keenly Alert, Responsive Temperature Route: Oral Pain Assessment Pain Scale: 0 Datetime: 03/11/2019 19:07 Stage of : OB Triage Datetime: 03/11/2019 18:53 Stage of : OB Triage Labor Evaluation Frequency: none Quality: Mild Pattern: Normal: <= 5 Contractions in 10 Minutes Resting Tone [place]: Relaxed Heart Rate FHR Baseline Rate: 150 Monitor Mode: External US FHR Baseline Changes: No Baseline Change Variability: Moderate 6-25 bpm Accelerations: 15X15 Decelerations: None Category: Category I Pain Presence: None/Denies Datetime: 03/11/2019 18:37 Stage of : OB Triage Headache: Denies Blurred Vision: No RUQ Epigastric Pain: Denies Facial Edema: None Labor Evaluation Frequency: none Pattern: Normal: <= 5 Contractions in 10 Minutes Resting Tone [place]: Relaxed Heart Rate FHR Baseline Rate: 145 Monitor Mode: External US FHR Baseline Changes: No Baseline Change Variability: Moderate 6-25 bpm Accelerations: 15X15 Decelerations: None Category: Category I Pain Presence: None/Denies Vaginal Exam Membrane Status: Intact Datetime: 03/11/2019 17:43 Time of Arrival: 03/11/2019 17:40 EGA: 37.1 Arrived By: Ambulatory Arrived From: Home Chief Complaint: advised by clinic to come to hospital for blood transfusion due to hgb of 6.4 Movement: Present Rupture of Membranes: Denies Vaginal Bleeding: None Vaginal Discharge: Present Recent Sexual Intercouse: Denies Abdominal Trauma: Not Applicable Patient Complaints: Other Additional Patient Complaints: experiencing feeling light headed at time and lack of energy and fee ling drained Time Provider Notified: 03/11/2019 19:00 Provider Notified: Dr Negrete Initial Plan: efm/ u/s Datetime: 03/11/2019 17:37 Stage of : OB Triage Maternal Assessment Level of Consciousness: Keenly Alert, Responsive DTR's/Clonus: DTRs 2+; No Clonus Headache: Denies Blurred Vision: No Respiratory Effort: Unlabored; Regular Rhythm; Equal Expansion Breath Sounds, Left: Clear and Equal Breath Sounds, Right: Clear and Equal Nausea/Vomiting: Denies RUQ Epigastric Pain: Denies Lower Extremities Edema: None Degree: None Upper Extremities Edema: None Degree: None Facial Edema: None Fall Risk Assessment History of Falling: (0) No Secondary Diagnosis: (0) No Ambulatory Aid: (0) Bedrest/Nurse Assist IV Therapy: (0) No Gait: (0) Normal/Bedrest/Immobile Mental Status: (0) Oriented to Own Ability Fall Score: 0 Fall Risk Score Definition: No Risk: No action required Monitor Mode: External Heart Rate FHR Baseline Rate: 150 Monitor Mode: External US Pain Assessment Pain Scale: 0 Vaginal Exam Membrane Status: Intact Datetime: 12/30/2018 19:15 EGA: 27.0 Datetime: 12/30/2018 15:42 Fall Score: 0 Fall Risk Score Definition: No Risk: No action required
== END 2019-03-11 22:49 | disposition home or self-care (01) ==
LOC: OBT 17:19 → L-D 17:20 → OBT 22:49
PROVIDERS: ATTEND Obstetrics & Gynecology
DX: O99.013 Anemia complicating pregnancy, third trimester (principal); D64.9 Anemia, unspecified; Z3A.37 37 weeks gestation of pregnancy
CPT/HCPCS: 76818; 96361; 96365; J2916; J7030; Z7500; Z7610; G0463

== ENCOUNTER 2019-03-12 19:13 | Outpatient (CLI) | payer MEDICAID ==
[~2019-03-12] VITALS: Ht 160 cm; Wt 75.5 kg
[2019-03-12] MEDS ORDERED: SOD CHLORIDE 0.9% 1,000 ML IV SCH (20:00)
[2019-03-12 20:03] VITALS: Ht 160 cm; Wt 75.5 kg
[2019-03-12 20:05] VITALS: BP 108/59; PULSE 83; RESP 18
[2019-03-12] MEDS ORDERED: SOD FERRIC GLUC COMPLX 125 MG in SOD CHLORIDE 0.9% 100 ML IVPB ONE (21:00)
--- NOTE | 2019-03-13 01:09 | PN ---
Triage Information Date/Time late entry for service rendered on 03/12/19 Reason for visit: for 2nd day of IV iron injection for severe anemia Weeks of Gestation 37w2d /Para Diabetes: none Hypertention: none Additional information last had A1DM and blood transfusion Objective Vital Signs Date Temp Pulse Resp B/P (MAP) Pulse Ox O2 O2 Flow FiO2 Time Delivery Rate 03/12/19 98.2 83 18 108/59 Room Air 20:05 (75) Heart Rate: 140's Heart Rate Comments CAT I Contractions: >10 Minutes Apart Results/Medications Medications ferrlecit 125mg IV Disposition: Discharge Assessment/Plan A IUP 37w2d severe anemia here for second dose of IV sod ferric gluconate complex P RTH tomorrow for 3rd dose RTH prn with routine labor instructions NANO TAYLOR MD Mar 13, 2019 01:08
--- NOTE | 2019-03-13 09:55 | TRIAGE ---
OB Triage Datetime Report Generated by CPN: 03/13/2019 09:55 Datetime: 03/12/2019 22:37 Stage of : OB Triage Assessment Type: Triage Datetime: 03/12/2019 22:28 Stage of : OB Triage Labor Evaluation Frequency: X1/20 MIN Monitor Mode: External Duration (sec)2399: 170 Quality: Mild Pattern: Normal: <= 5 Contractions in 10 Minutes Resting Tone [place]: Relaxed Heart Rate FHR Baseline Rate: 140 Monitor Mode: External US Variability: Moderate 6-25 bpm Accelerations: 15X15 Decelerations: None Category: Category I Datetime: 03/12/2019 22:10 Stage of : OB Triage Labor Evaluation Frequency: X3/HR Monitor Mode: External Duration (sec)2399: 60-160 Quality: Mild Pattern: Normal: <= 5 Contractions in 10 Minutes Resting Tone [place]: Relaxed Heart Rate FHR Baseline Rate: 145 Monitor Mode: External US Variability: Moderate 6-25 bpm Accelerations: 15X15 Decelerations: None Category: Category I Datetime: 03/12/2019 21:10 Stage of : OB Triage Labor Evaluation Frequency: X3/HR Monitor Mode: External Duration (sec)2399: 60-160 Quality: Mild Pattern: Normal: <= 5 Contractions in 10 Minutes Resting Tone [place]: Relaxed Heart Rate FHR Baseline Rate: 145 Monitor Mode: External US Variability: Moderate 6-25 bpm Accelerations: 15X15 Decelerations: None Category: Category I Datetime: 03/12/2019 20:20 Stage of : OB Triage Assessment Type: Triage Datetime: 03/12/2019 20:10 Stage of : OB Triage Labor Evaluation Frequency: X1/30 MIN Monitor Mode: External Duration (sec)2399: 70 Quality: Mild Pattern: Normal: <= 5 Contractions in 10 Minutes Resting Tone [place]: Relaxed Heart Rate FHR Baseline Rate: 140 Monitor Mode: External US Variability: Moderate 6-25 bpm Accelerations: 15X15 Decelerations: None Category: Category I Datetime: 03/12/2019 19:44 Time of Arrival: 03/12/2019 19:09 EGA: 37.2 Arrived By: Ambulatory Arrived From: Home Chief Complaint: Returning for 2nd dose of iron transfusion Movement: Present Contractions: Irregular Contractions: Irregular Rupture of Membranes: Denies Vaginal Bleeding: None Vaginal Discharge: Present Recent Sexual Intercouse: Denies Abdominal Trauma: Not Applicable Patient Complaints: Cramping; Back Pain Time Provider Notified: 03/12/2019 19:52 Provider Notified: (Annotations: Data stored by N on behalf of user) Initial Plan: Ferrlecit 125mg IVPB Datetime: 03/12/2019 19:40 Stage of : OB Triage Assessment Type: Triage Maternal Assessment Level of Consciousness: Keenly Alert, Responsive DTR's/Clonus: DTRs 2+; No Clonus Headache: Denies Blurred Vision: No Respiratory Effort: Unlabored; Regular Rhythm; Equal Expansion Breath Sounds, Left: Clear and Equal Breath Sounds, Right: Clear and Equal Nausea/Vomiting: Denies RUQ Epigastric Pain: Denies Lower Extremities Edema: None Degree: None Upper Extremities Edema: None Degree: None Facial Edema: None Temperature Route: Oral Fall Risk Assessment History of Falling: (0) No Secondary Diagnosis: (0) No Ambulatory Aid: (0) Bedrest/Nurse Assist IV Therapy: (0) No Gait: (0) Normal/Bedrest/Immobile Mental Status: (0) Oriented to Own Ability Fall Score: 0 Fall Risk Score Definition: No Risk: No action required Pain Assessment Pain Scale: 0 Pain Presence: None/Denies Pain Type: N/A Datetime: 03/11/2019 17:43 EGA: 37.1 Datetime: 03/11/2019 17:37 Fall Score: 0 Fall Risk Score Definition: No Risk: No action required Datetime: 12/30/2018 19:15 EGA: 27.0 Datetime: 12/30/2018 15:42 Fall Score: 0 Fall Risk Score Definition: No Risk: No action required
== END 2019-03-12 23:00 | disposition home or self-care (01) ==
LOC: OBT 19:13 → L-D 19:14 → OBT 23:00
PROVIDERS: ATTEND Obstetrics & Gynecology
DX: O99.013 Anemia complicating pregnancy, third trimester (principal); D64.9 Anemia, unspecified; Z3A.37 37 weeks gestation of pregnancy
CPT/HCPCS: 36415; 96360; 96361; 96367; J2916; J7030; Z7500; Z7610; G0463

== ENCOUNTER 2019-03-13 12:46 | Outpatient (CLI) | payer MEDICAID ==
[~2019-03-13] VITALS: Ht 160 cm; Wt 75.0 kg
[2019-03-13 12:58] VITALS: Ht 160 cm; Wt 75.0 kg
[2019-03-13] MEDS ORDERED: SOD CHLORIDE 0.9% 1,000 ML IV SCH (13:30)
[2019-03-13] MEDS ORDERED: CYANOCOBALAMIN 1000 MCG INJ IM ONE (13:30)
[2019-03-13 13:31] VITALS: BP 97/57; PULSE 98; RESP 20
[2019-03-13] MEDS ORDERED: SOD FERRIC GLUC COMPLX 125 MG in SOD CHLORIDE 0.9% 100 ML IVPB ONE (14:00)
--- NOTE | 2019-03-13 15:00 | PN ---
Triage Information Date/Time Reason for visit: Ferrlecit infusion for severe anemia Weeks of Gestation Patient is a 28-year-old 2 para 1 at 37 weeks and 2 days of gestation with estimated date of delivery March 31, 2019 here for third dose of Ferrlecit infusion for severe anemia Patient reports positive movement, denies vaginal bleeding and leaking fluid, reports occasional uterine contractions /Para 2 para 1 Diabetes: none Hypertention: none Objective Vital Signs Date Temp Pulse Resp B/P (MAP) Pulse Ox O2 O2 Flow FiO2 Time Delivery Rate 03/13/19 97.8 98 20 97/57 (70) Room Air 13:31 Heart Rate: 140's Heart Rate Comments heart rate tracing category 1 Contractions: >10 Minutes Apart Exam Cervix closed per nurse Results/Medications Medications Current Medications Ferric Sodium Gluconate Complex 125 mg/Sodium Chloride 100 ml @ 100 mls/hr ONCE ONCE IVPB Last administered on 03/13/19at 13:57; Admin Dose 100 MLS/HR; Start 03/13/19 at 14:00; Stop 03/13/19 at 14:59 Sodium Chloride 1,000 ml @ 125 mls/hr Q8H IV Last administered on 03/13/19at 13:37; Admin Dose 125 MLS/HR; Start 03/13/19 at 13:30 Disposition: Discharge Assessment/Plan Patient received Ferrlecit infusion and vitamin B12 She is supposed to have her CBC done in the [facility] on her next appointment kick count instructions were given Labor precautions were given Patient instructed to follow-up with [facility] in 1 to 2 days LUCÍA NULL MD Mar 13, 2019 15:00
--- NOTE | 2019-03-13 15:03 | TRIAGE ---
OB Triage Datetime Report Generated by CPN: 03/13/2019 15:03 Datetime: 03/13/2019 13:18 Level of Consciousness: Keenly Alert, Responsive DTR's/Clonus: DTRs 2+ Headache: Denies Blurred Vision: No Nausea/Vomiting: Denies RUQ Epigastric Pain: Denies Facial Edema: None Frequency: IRREG Monitor Mode: External Quality: Mild Pattern: Normal: <= 5 Contractions in 10 Minutes Resting Tone [place]: Relaxed FHR Baseline Rate: 140 Monitor Mode: External US FHR Baseline Changes: No Baseline Change Variability: Moderate 6-25 bpm Accelerations: 15X15 Decelerations: None Category: Category I Pain Scale: 2 Pain Presence: Intermittent Pain Type: Cramping Pain Location: Abdomen Pain Goal: 0 Dilatation (cms): 0.0 Effacement (%): 0 Exam By: TAMELA WAGNER Membrane Status: Intact Vaginal Bleeding: None Cervix, Consistency: Soft Cervix, Position: Midposition Datetime: 03/13/2019 12:54 Time of Arrival: 03/13/2019 12:54 EGA: 37.3 Arrived By: Ambulatory Arrived From: Home Chief Complaint: HERE FOR 3RD DOSE FERLICIT Movement: Present Contractions: Irregular Rupture of Membranes: Denies Vaginal Bleeding: None Vaginal Discharge: Denies Recent Sexual Intercouse: Denies Abdominal Trauma: Not Applicable Patient Complaints: Other (Annotations: Data stored by [facility] on behalf of user) Time Provider Notified: 03/13/2019 13:30 Provider Notified: DR FARR Initial Plan: EFM,CALL CHIKA Datetime: 03/13/2019 12:53 Level of Consciousness: Keenly Alert, Responsive DTR's/Clonus: DTRs 2+; No Clonus Headache: Denies Blurred Vision: No Respiratory Effort: Unlabored; Regular Rhythm; Equal Expansion Breath Sounds, Left: Clear and Equal Breath Sounds, Right: Clear and Equal Nausea/Vomiting: Denies RUQ Epigastric Pain: Denies Facial Edema: None Temperature Route: Axillary History of Falling: (0) No Secondary Diagnosis: (0) No Ambulatory Aid: (0) Bedrest/Nurse Assist IV Therapy: (0) No Gait: (0) Normal/Bedrest/Immobile Mental Status: (0) Oriented to Own Ability Fall Score: 0 Fall Risk Score Definition: No Risk: No action required Datetime: 03/12/2019 22:37 Frequency: None noted or palpated Monitor Mode: External Resting Tone [place]: Relaxed FHR Baseline Rate: 140 Monitor Mode: External US Variability: Moderate 6-25 bpm Accelerations: 15X15 Decelerations: None Category: Category I Pain Scale: 0 Pain Presence: None/Denies Pain Type: N/A Pain Assessment Comments: Pt continues to deny pain Datetime: 03/12/2019 20:58 Stage of : OB Triage Datetime: 03/12/2019 19:44 EGA: 37.2 Datetime: 03/12/2019 19:42 Stage of : OB Triage Monitor Mode: External Contraction Comments: [place] applied FHR Baseline Rate: 130 Monitor Mode: External US Comments: EFM applied
== END 2019-03-13 14:55 | disposition home or self-care (01) ==
LOC: L-D 12:46 → OBT 12:46
PROVIDERS: ATTEND Obstetrics & Gynecology
DX: O99.013 Anemia complicating pregnancy, third trimester (principal); D64.9 Anemia, unspecified; O62.9 Abnormality of forces of labor, unspecified; Z3A.37 37 weeks gestation of pregnancy
CPT/HCPCS: J2916; J3420; J7030; Z7500; Z7610; G0463

== ENCOUNTER 2019-03-15 23:20 | Observation (INO) | payer MEDICAID ==
[~2019-03-15] VITALS: Ht 160 cm; Wt 75.8 kg
[2019-03-16 00:06] VITALS: Ht 160 cm; Wt 75.8 kg
[2019-03-16 00:07] VITALS: BP 106/69; PULSE 94; RESP 20
[2019-03-16] MEDS ORDERED: LACTATED RINGER'S 1,000 ML IV SCH (03:43)
[2019-03-16] MEDS ORDERED: LACTATED RINGER'S 1,000 ML IV PRN (03:43)
--- NOTE | 2019-03-16 03:50 | HP ---
Date/Time of Note Date/Time of Note DATE: 03/16/19 TIME: 03:46 OB - History Hx of Present Chief Complaint: leakage of fluid and contractions Estimated Due Date: Mar 31, 2019 : 2 Para: 1 Spontaneous : 0 Therapeutic : 0 Care: Good Care Ultrasounds: Normal mid trimester US Obstetrical Complications: None Medical Complications: Other (anemia) Past Family/Social History * Past Medical, Surgical, Family and Obstetric Histories reviewed from chart. OB Admission Exam Vital Signs Vital Signs Vital Signs Date Temp Pulse Resp B/P (MAP) Pulse Ox O2 O2 Flow FiO2 Time Delivery Rate 03/16/19 98.4 94 20 106/69 Room Air 00:07 (81) Physical Exam HEENT: WNL Heart: Rhythm Normal Lungs: Clear, Equal Abdomen: WNL Extremities: Normal Reflexes: Normal Cervical Dilatation: 1cm Effacement: 50% Station: -1 Heart Rate: 140's Accelerations: Accelerations Present Decelerations: No Decelerations Varibility: Moderate Last 72 hours Lab Results CBC & BMP 03/16/19 00:25 OB Assessment/Plan Reason for admission: other Other Assessment: R/O SROM R/O labor Plan: Expectant Management Other plan: Monitor for SROM and labor RAJNI FLORES MD Mar 16, 2019 03:50
[2019-03-16] MEDS ORDERED: OXYTOCIN 30 UNITS/LR 500 ML IV SCH ×2 (04:00)
[2019-03-16] MEDS ORDERED: LIDOCAINE 1% (MPF) 30 ML INJ INJ PRN (04:00)
[2019-03-16] MEDS ORDERED: BUTORPHANOL 2 MG INJ IV PRN (04:00)
[2019-03-16] MEDS ORDERED: IBUPROFEN 600 MG TAB PO PRN (04:00)
[2019-03-16] MEDS ORDERED: CARBOPROST 250 MCG INJ IM PRN (04:00)
[2019-03-16] MEDS ORDERED: METHYLERGONOVINE 0.2 MG INJ IM PRN (04:00)
[2019-03-16] MEDS ORDERED: OXYTOCIN 30 UNITS/LR 500 ML IV PRN (04:00)
[2019-03-16] MEDS ORDERED: AMPICILLIN 2 GM/NS (PMX) 100 ML IV ONE (04:00)
[2019-03-16] MEDS ORDERED: MISOPROSTOL 200 MCG TAB PR PRN (04:00)
[2019-03-16] MEDS ORDERED: DIPHENHYDRAMINE 25 MG CAP PO PRN (07:30)
--- NOTE | 2019-03-16 07:48 | TRIAGE ---
OB Triage Datetime Report Generated by CPN: 03/16/2019 07:47 Datetime: 03/16/2019 07:00 Stage of : OB Triage Labor Evaluation Frequency: Irregular Monitor Mode: External Duration (sec)2399: 40-90 Quality: Mild Pattern: Normal: <= 5 Contractions in 10 Minutes Resting Tone [place]: Relaxed Heart Rate FHR Baseline Rate: 130 Monitor Mode: External US Variability: Moderate 6-25 bpm Accelerations: 15X15 Decelerations: None Category: Category I Datetime: 03/16/2019 06:27 Stage of : Labor Datetime: 03/16/2019 06:00 Stage of : OB Triage Labor Evaluation Frequency: Irregular Monitor Mode: External Duration (sec)2399: 50-110 Quality: Mild Pattern: Normal: <= 5 Contractions in 10 Minutes Resting Tone [place]: Relaxed Heart Rate FHR Baseline Rate: 135 Monitor Mode: External US Variability: Moderate 6-25 bpm Accelerations: 15X15 Decelerations: Variable Category: Category II Datetime: 03/16/2019 05:31 Stage of : Labor Datetime: 03/16/2019 05:00 Stage of : OB Triage Labor Evaluation Frequency: Irregular Monitor Mode: External Duration (sec)2399: 40-110 Quality: Mild Pattern: Normal: <= 5 Contractions in 10 Minutes Resting Tone [place]: Relaxed Heart Rate FHR Baseline Rate: 140 Monitor Mode: External US FHR Baseline Changes: No Baseline Change Variability: Moderate 6-25 bpm Accelerations: 15X15 Decelerations: None Category: Category I Datetime: 03/16/2019 04:00 Stage of : OB Triage Labor Evaluation Frequency: Irregular Monitor Mode: External Duration (sec)2399: 40-90 Quality: Mild Pattern: Normal: <= 5 Contractions in 10 Minutes Resting Tone [place]: Relaxed Heart Rate FHR Baseline Rate: 140 Monitor Mode: External US Variability: Moderate 6-25 bpm Accelerations: 15X15 Decelerations: Variable Category: Category II Datetime: 03/16/2019 03:27 Stage of : OB Triage Temperature Route: Oral Datetime: 03/16/2019 02:14 Stage of : OB Triage Labor Evaluation Frequency: x1 Monitor Mode: External Duration (sec)2399: 40 Quality: Mild Pattern: Normal: <= 5 Contractions in 10 Minutes Resting Tone [place]: Relaxed Heart Rate FHR Baseline Rate: 150 Monitor Mode: External US Variability: Moderate 6-25 bpm Accelerations: 15X15 Decelerations: None Category: Category I Datetime: 03/16/2019 02:11 Stage of : OB Triage Vaginal Exam Dilatation (cms): 1.5 Exam By: Dr.Delshad Datetime: 03/16/2019 02:00 Stage of : OB Triage Labor Evaluation Frequency: Irregular Monitor Mode: External Duration (sec)2399: 40-110 Quality: Mild Pattern: Normal: <= 5 Contractions in 10 Minutes Resting Tone [place]: Relaxed Heart Rate FHR Baseline Rate: 155 Monitor Mode: External US Variability: Moderate 6-25 bpm Accelerations: 15X15 Datetime: 03/16/2019 01:10 Stage of : OB Triage Datetime: 03/16/2019 01:00 Stage of : OB Triage Labor Evaluation Frequency: Irregular Monitor Mode: External Duration (sec)2399: 50-120 Quality: Mild Pattern: Normal: <= 5 Contractions in 10 Minutes Resting Tone [place]: Relaxed Heart Rate FHR Baseline Rate: 150 Monitor Mode: External US Variability: Moderate 6-25 bpm Accelerations: 15X15 Decelerations: Variable Category: Category II Datetime: 03/16/2019 00:11 Stage of : OB Triage Datetime: 03/16/2019 00:10 Stage of : OB Triage Datetime: 03/16/2019 00:08 Stage of : OB Triage Datetime: 03/16/2019 00:00 Stage of : OB Triage Labor Evaluation Frequency: x1 Monitor Mode: External Duration (sec)2399: 90 Quality: Mild Pattern: Normal: <= 5 Contractions in 10 Minutes Resting Tone [place]: Relaxed Heart Rate FHR Baseline Rate: 145 Monitor Mode: External US Variability: Moderate 6-25 bpm Accelerations: 15X15 Decelerations: None Category: Category I Datetime: 03/15/2019 23:58 Vaginal Exam Dilatation (cms): 1.5 Effacement (%): 60 Station: -3 Exam By: KRISTY Foy Vaginal Bleeding: None Cervix, Consistency: Moderate Cervix, Position: Posterior Presentation 'A': Cephalic Datetime: 03/15/2019 23:55 Stage of : OB Triage Pool: Negative Nitrazine: Negative Datetime: 03/15/2019 23:40 Stage of : OB Triage Assessment Type: Triage Maternal Assessment Level of Consciousness: Keenly Alert, Responsive DTR's/Clonus: DTRs 2+; No Clonus Headache: Denies Blurred Vision: No Respiratory Effort: Unlabored; Regular Rhythm; Equal Expansion Breath Sounds, Left: Clear and Equal Breath Sounds, Right: Clear and Equal RUQ Epigastric Pain: Denies Lower Extremities Edema: None Degree: None Upper Extremities Edema: None Degree: None Facial Edema: None Temperature Route: Oral Fall Risk Assessment History of Falling: (0) No Secondary Diagnosis: (0) No Ambulatory Aid: (0) Bedrest/Nurse Assist IV Therapy: (0) No Gait: (0) Normal/Bedrest/Immobile Mental Status: (0) Oriented to Own Ability Fall Score: 0 Fall Risk Score Definition: No Risk: No action required Pain Assessment Pain Scale: 2 Pain Presence: Intermittent Pain Type: Cramping Pain Location: Abdomen; Back Pain Relief Measures: Comfort Measures Datetime: 03/15/2019 23:29 Time of Arrival: 03/15/2019 23:15 EGA: 37.5 Arrived By: Wheelchair Arrived From: Home Chief Complaint: SROM @2130 Movement: Present Contractions: Irregular Rupture of Membranes: Ruptured Vaginal Bleeding: None Vaginal Discharge: Present Recent Sexual Intercouse: Denies Abdominal Trauma: Not Applicable Patient Complaints: Contractions; Cramping; Back Pain Time Provider Notified: 03/16/2019 00:11 Provider Notified: Initial Plan: Nitrazine, VE Datetime: 03/13/2019 12:54 EGA: 37.3 Datetime: 03/13/2019 12:53 Fall Score: 0 Fall Risk Score Definition: No Risk: No action required Datetime: 03/12/2019 19:44 EGA: 37.2 Datetime: 03/12/2019 19:40 Fall Score: 0 Fall Risk Score Definition: No Risk: No action required Datetime: 03/11/2019 17:43 EGA: 37.1 Datetime: 03/11/2019 17:37 Fall Score: 0 Fall Risk Score Definition: No Risk: No action required Datetime: 12/30/2018 19:15 EGA: 27.0 Datetime: 12/30/2018 15:42 Fall Score: 0 Fall Risk Score Definition: No Risk: No action required
[2019-03-16] MEDS ORDERED: AMPICILLIN 1 GM/NS (PMX) 50 ML IV SCH (08:00)
--- NOTE | 2019-03-17 03:11 | PN ---
Date/Time of Note Date/Time of Note DATE: 03/17/19 TIME: 03:08 OB Subjective Subjective Subjective Patient seen and examined. She states good movement. She denies nausea, vomiting, shortness of breath, chest pain, abdominal pain, headache, visual changes, vaginal bleeding or LOF. OB Objective Objective Objective General: Patient appears well, alert and oriented, NAD, appropriate mood and affect ABD: gravid, soft, non-tender. Back: No CVA tenderness (B/L) LE: Mild edema. No clubbing, cyanosis, edema, thigh or calf tenderness bilaterally FHT: 130 bpm , moderate variability with acceleration, no deceleration-category I Contractions: None Speculum exam: No leakage of fluid or gush of fluid seen. Nitrazine test and ROM plus negative OB Assessment/Plan Other plan: 28 years old 2 para 1-0-0-1 with single intrauterine at 37 weeks and 6 days was admitted for rule out rupture of membrane. - FHR: Category I - Continuous EFM, toco - She observed for possible leakage of fluid for few hours. She was walking, no further complaining of leakage of fluid, repeat ultrasound performed JAMIE of 9.3 -Symptoms and sign of labor, preeclampsia, kick count discussed with patient, she voiced understanding. All of her questions answered. -Patient was discharged home in stable condition with the appropriate discharge instructions provided. I would like patient to have close follow-up with her primary physician or outpatient clinic in 1-2 days or return to triage for worsening symptoms or any other urgent concerns. GEOFFREY FARR Mar 17, 2019 03:11
--- NOTE | 2019-03-17 03:12 | DS ---
Date/Time of Note Date/Time of Note DATE: 03/17/19 TIME: 03:12 Obstetrical Discharge Record Final Diagnosis Final Diagnosis: Term not delivered Other Final Diagnosis 28 years old 2 para 1-0-0-1 with single intrauterine at 37 weeks and 6 days was admitted for rule out rupture of membrane. FHR: Category I. She had no uterine contractions. She observed for possible leakage of fluid for few hours. She was walking, no further complaining of leakage of fluid, repeat ultrasound performed JAMIE of 9.3. Symptoms and sign of labor, preeclampsia, kick count discussed with patient, she voiced understanding. All of her questions answered. Patient was discharged home in stable condition with the appropriate discharge instructions provided. I would like patient to have close follow-up with her primary physician or outpatient clinic in 1-2 days or return to triage for worsening symptoms or any other urgent concerns. Condition on Discharge Physical Assessment Voiding: Yes Bowel Movement: Yes Breast: Soft, non-tender Calf Tenderness: No Patient Condition: Stable GEOFFREY FARR Mar 17, 2019 03:12
== END 2019-03-16 12:30 | disposition home or self-care (01) ==
LOC: OBT 23:20 → L-D 23:20 → OBT 03-16 03:40 → INTOOBSV 03-16 03:40 → L-D 03-16 08:36
PROVIDERS: ADMIT Obstetrics & Gynecology; ATTEND Obstetrics & Gynecology
DX: O47.1 False labor at or after 37 completed weeks of gestation (principal); Z3A.37 37 weeks gestation of pregnancy
CPT/HCPCS: 36415; 76816; 76818; 81001; 84112; 85025; 85610; 85730; 86592; 86850; 86900; 86901; 87340; 96360; 96361; 96365; J0290; J7120; Z7500; 99217; G0378; G0463

== ENCOUNTER 2019-03-29 11:57 | Inpatient (IN) | payer MEDICAID ==
[~2019-03-29] VITALS: Ht 160 cm; Wt 63.2 kg
[~2019-03-29 11:57] MED LIST changes: +HYDR-3601 PO; +HYDR-4011 PO; +IBUP-1561 PO; +ONDA4TAB14 PO; +PREN-93 PO
[2019-03-29 12:03] VITALS: Ht 160 cm; Wt 63.2 kg
[2019-03-29] MEDS ORDERED: SOD CHLORIDE 0.9% 1,000 ML IV SCH (12:30)
[2019-03-29] MEDS ORDERED: CYANOCOBALAMIN 1000 MCG INJ IM ONE (13:00)
[2019-03-29] MEDS ORDERED: SOD FERRIC GLUC COMPLX 125 MG in SOD CHLORIDE 0.9% 100 ML IVPB ONE (13:30)
[2019-03-29] MEDS ORDERED: OXYTOCIN 30 UNITS/LR 500 ML IV SCH ×3 (19:00→21:30)
[2019-03-29] MEDS ORDERED: BUTORPHANOL 2 MG INJ IV PRN (19:00)
[2019-03-29] MEDS ORDERED: MISOPROSTOL 200 MCG TAB PR PRN (19:00)
[2019-03-29] MEDS ORDERED: LIDOCAINE 1% (MPF) 30 ML INJ INJ PRN (19:00)
[2019-03-29] MEDS ORDERED: CARBOPROST 250 MCG/ML VIAL IM PRN (19:00)
[2019-03-29] MEDS ORDERED: AMPICILLIN 2 GM/NS (PMX) 100 ML IV ONE (19:00)
[2019-03-29] MEDS ORDERED: OXYTOCIN 30 UNITS/LR 500 ML IV PRN (19:00)
[2019-03-29] MEDS ORDERED: METHYLERGONOVINE 0.2 MG INJ IM PRN (19:00)
[2019-03-29] MEDS: LACTATED RINGER'S 1,000 ML IV SCH ×2 (19:36→22:22)
[2019-03-30] MEDS: AMPICILLIN 1 GM/NS (PMX) 50 ML IV SCH ×4 (00:14→12:03)
[2019-03-30] MEDS: LACTATED RINGER'S 1,000 ML IV SCH ×2 (08:05→18:55)
[2019-03-30] MEDS ORDERED: LACTATED RINGER'S 1,000 ML IV PRN (08:56)
[2019-03-30] MEDS ORDERED: FENTAnyl 2MCG/ML-ROPIV 0.2% 100 ML ONE (09:08)
[2019-03-30] MEDS ORDERED: FENTAnyl 2MCG/ML-ROPIV 0.2% 100 ML BAG EPI SCH (09:30)
[2019-03-30] MEDS ORDERED: NALOXONE (0.4 MG/ML) INJ IV PRN (09:30)
[2019-03-30 15:45] VITALS: BP 111/77; PULSE 84; RESP 16
[2019-03-30 16:45] VITALS: BP 114/72; PULSE 65; RESP 17
[2019-03-30] MEDS: DEXTROSE 5%-LR 1,000 ML IV SCH (16:54)
[2019-03-30] MEDS: LACTATED RINGER'S 1,000 ML IV* SCH (16:54)
[2019-03-30] MEDS ORDERED: BENZOCAINE 20% 56 ML SPRAY TOP PRN (17:00)
[2019-03-30] MEDS ORDERED: DIBUCAINE 1% 30 GM OINT TOP PRN (17:00)
[2019-03-30] MEDS ORDERED: OXYTOCIN 30 UNITS/LR 500 ML IV PRN (17:00)
[2019-03-30] MEDS ORDERED: CARBOPROST 250 MCG/ML VIAL IM PRN (17:00)
[2019-03-30] MEDS ORDERED: METHYLERGONOVINE 0.2 MG INJ IM PRN (17:00)
[2019-03-30] MEDS ORDERED: DIPHENHYDRAMINE 50 MG INJ IV PRN (17:00)
[2019-03-30] MEDS ORDERED: ZOLPIDEM 5 MG TAB PO PRN (17:00)
[2019-03-30] MEDS ORDERED: ACETAMINOPHEN 325 MG TAB PO PRN (17:00)
[2019-03-30] MEDS ORDERED: MAGNESIUM HYDROXIDE 30ML CUP PO PRN (17:00)
[2019-03-30] MEDS ORDERED: LANOLIN HPA 1 PKT TOP PRN (17:00)
[2019-03-30] MEDS ORDERED: SENNA/DOCUSATE NA (8.6MG/50MG) TAB PO PRN (17:00)
[2019-03-30] MEDS ORDERED: ONDANSETRON 4 MG INJ IV PRN (17:00)
[2019-03-30] MEDS ORDERED: OXYCODONE/ASPIRIN (4.88/325) TAB PO PRN (17:00)
[2019-03-30] MEDS ORDERED: MISOPROSTOL 200 MCG TAB PR PRN (17:00)
[2019-03-30] MEDS ORDERED: WITCH HAZEL/GLYCERIN PAD PR PRN (17:00)
[2019-03-30] MEDS: IBUPROFEN 600 MG TAB PO SCH (17:08)
[2019-03-30 17:50] VITALS: BP 95/56; PULSE 82; RESP 16
[2019-03-30 20:00] VITALS: BP 100/55; PULSE 79; RESP 18
[2019-03-31] VITALS (7 sets, daily range): BP systolic 97–105; BP diastolic 55–60; PULSE 64–82; RESP 16–18
[2019-03-31] MEDS: IBUPROFEN 600 MG TAB PO SCH ×4 (00:13→20:01)
[2019-03-31] MEDS: DEXTROSE 5%-LR 1,000 ML IV SCH (00:54)
[2019-03-31] MEDS: LACTATED RINGER'S 1,000 ML IV* SCH (00:54)
[2019-03-31] MEDS: LACTATED RINGER'S 1,000 ML IV SCH (02:45)
[2019-03-31] MEDS: FERROUS SULFATE (EC) 325 MG TAB PO SCH ×3 (09:33→21:05)
[2019-03-31] MEDS: ASCORBIC ACID 500 MG TAB PO SCH ×3 (09:33→21:05)
[2019-04-01 03:45] VITALS: BP 105/60; PULSE 68; RESP 18
[2019-04-01] MEDS: IBUPROFEN 600 MG TAB PO SCH ×2 (06:35)
[2019-04-01 08:00] VITALS: BP 109/68; PULSE 68; RESP 18
[2019-04-01] MEDS ORDERED: MEASLES,MUMPS,RUBELLA VACCINE INJ SC* ONE (09:00)
[2019-04-01] MEDS ORDERED: DIPHTH/TET/ACEL PERTUSS (ADULT) 0.5 ML VIAL IM* ONE (09:00)
[2019-04-01] MEDS: FERROUS SULFATE (EC) 325 MG TAB PO SCH (09:02)
[2019-04-01] MEDS: ASCORBIC ACID 500 MG TAB PO SCH (09:03)
== END 2019-04-01 12:15 | disposition home or self-care (01) | DRG 807 ==
LOC: OBT 11:57 → L-D 11:57 → OBT 14:55 → L-D 14:55 → PP1 03-30 15:50
PROVIDERS: ADMIT Obstetrics & Gynecology; ATTEND Obstetrics & Gynecology
PROC: 10E0XZZ Delivery of Products of Conception, External Approach (ICD-10-PCS; principal; 2019-03-30)
PROC: 0HQ9XZZ Repair Perineum Skin, External Approach (ICD-10-PCS; 2019-03-30)
DX: O69.81X0 Labor and delivery complicated by cord around neck, without compression, not applicable or unspecified (principal); Z37.0 Single live birth; O70.0 First degree perineal laceration during delivery; O99.02 Anemia complicating childbirth; Z3A.39 39 weeks gestation of pregnancy
CPT/HCPCS: 36415; 62322; 76818; 82728; 83020; 83540; 85014; 85018; 85025; 85610; 85730; 86592; 86850; 86900; 86901; 96360; 96361; 96366; 96372; G0463; J0290; J2590; J2916; J3010; J3420; J7030; J7120; J7121

== ENCOUNTER 2019-04-25 03:32 | Emergency (ER) | payer MEDICAID ==
[~2019-04-25] VITALS: Ht 160 cm; Wt 66.9 kg
[~2019-04-25 03:32] MED LIST changes: -CALC600T24 PO; -PRENAT PO
[2019-04-25 03:33] VITALS: Ht 160 cm; Wt 66.9 kg
[2019-04-25] MEDS ORDERED: ONDANSETRON 4 MG INJ IV STA (03:51)
[2019-04-25] MEDS ORDERED: morphine 4 MG/ML VIAL IV STA ×2 (03:51→04:35)
[2019-04-25] MEDS ORDERED: IOHEXOL 300MG/ML 150 ML BTL ONE (04:54)
[2019-04-25] MEDS ORDERED: SOD CHLORIDE 0.9% 100 ML ONE (04:54)
[2019-04-25 06:21] VITALS: BP 89/66; PULSE 54; RESP 18
== END 2019-04-25 06:32 | disposition home or self-care (01) ==
LOC: E/R 03:32
DX: O90.89 Other complications of the puerperium, not elsewhere classified (principal); R06.02 Shortness of breath; R07.9 Chest pain, unspecified
CPT/HCPCS: 36415; 71045; 71275; 80048; 84484; 85025; 85378; 93005; 96374; 96375; 96376; J2270; J2405; Q9967; Z7502; Z7610

== ENCOUNTER 2019-04-25 14:38 | Emergency (ER) | payer MEDICAID ==
[~2019-04-25] VITALS: Ht 160 cm; Wt 66.8 kg
[2019-04-25 14:46] VITALS: Ht 160 cm; Wt 66.8 kg
[2019-04-25] MEDS ORDERED: KETOROLAC 30 MG INJ IV STA (17:19)
[2019-04-25] MEDS ORDERED: SOD CHLORIDE 0.9% 1,000 ML IV ONE (17:30)
[2019-04-25] MEDS ORDERED: PANTOPRAZOLE 40 MG INJ IV ONE (17:30)
[2019-04-25 20:11] VITALS: BP 108/69; PULSE 59; RESP 18
== END 2019-04-25 20:18 | disposition home or self-care (01) ==
LOC: E/R 14:38
DX: R07.9 Chest pain, unspecified (principal); D64.9 Anemia, unspecified
CPT/HCPCS: 36415; 80053; 81003; 82550; 82553; 84484; 85025; 93005; 96374; 96375; C9113; J1885; J7030; Z7502